=== PATIENT | female | born 1990 | race Caucasian/White ===

== ENCOUNTER 2016-05-10 09:30 | Emergency (ER) | payer MEDICAID ==
[2016-05-10 09:42] VITALS: TEMP 97.8; BMI 19.9
[2016-05-10 10:19] LABS: LEUKOCYTES/URINE TRACE (NEGATIVE); NITRITE/URINE NEG (NEGATIVE); URINE OCCULT BLOOD NEG (NEG/TRACE)
[2016-05-10] MEDS ORDERED: AZITHROMYCIN 250 MG TAB PO ONE (10:51)
[2016-05-10] MEDS ORDERED: CEFOXITIN 1 GM VIAL IM ONE (10:55)
[2016-05-10] MEDS ORDERED: GENTAMICIN 80 MG/2 ML VIAL IM ONE (11:35)
--- NOTE | 2016-05-10 11:37 | EDPRACDOC ---
- General Information Chief Complaint: Female Urogenital Problems Stated Complaint: ABDOMINAL PAIN Time Seen by Provider: 05/10/16 10:44 Information Source: Patient Home Medications: Home Medications No Home Medications 05/10/16 Allergies/Adverse Reactions: Allergies Allergy/AdvReac Type Severity Reaction Status Date / Time ceftriaxone sodium Allergy Hives* Verified 05/16/15 08:33 [facility] - History of Present Illness HPI: C/o lower abdo and pelvic pain with inc urinary urge, N/V and white vaginal d/c x 10 days. Denies vaginal bleeding, itching, fever, sob, cp. Med hx = asthma. Surgical hx = none. Onset: 10 DAYS Urinary Pain Location: Reports: Abdomen, Suprapubic Symptom Onset: Reports: Gradual Pain Severity: 4 Pain Quality: Reports: Cramping History of: Reports: None : (UNKNOWN) Oral Intake: Normal Urinary Output: Decreased Associated Signs and Symptoms: Reports: Abdominal Pain, Vaginal Discharge ED Past Medical History - History Reviewed Yes Nurses notes reviewed and agree except as marked - Patient Medical History Neurological History: Reports: Migraine Respiratory History: Reports: Asthma GI/ History: Denies: Urinary Tract Infection Psychological History: Reports: Depression Systemic History: Denies: Cancer - Family Medical History Reports: Cancer (AUNT/FATHER) - Social Medical History Smoking Status: Heavy tobacco smoker (5 or more cigarettes/day or daily pipe/ cigar) EDM Review of Systems - Review of Systems ROS Negative Except as Marked: Yes All systems reviewed and were negative except as marked Gastrointestinal: Nausea, Pain, Vomiting Genitourinary: Dysuria, Vaginal Discharge - Physical Exam Constitutional: No apparent distress, Alert Oriented to: Time, Person, Place Last recorded Vital Signs: Last Vital Signs Temp 97.8 F 05/10/16 09:39 Pulse 75 05/10/16 09:39 Resp 16 05/10/16 09:39 BP 109/63 05/10/16 09:39 Pulse Ox 99 05/10/16 09:39 Oxygen Pulse Oxygen Saturation 99 O2 Device Room Air Oxygen Flow Rate Fraction of Inspired Oxygen ( FIO2) - HEENT Head: Normal Eye Exam: negative: Conjunctival Injection, Scleral Icterus TMJ: Normal Nose: No Symptoms Reported Neck: Normal - Respiratory/Cardiovascular Respiratory: Normal - CTA Cardiovascular: Normal - GI Tenderness: Mild, Suprapubic - Bladder: Normal External: Normal Vagina: Discharge Cervix: Discharge, Tenderness Uterus: Normal size Adnexa: Bilateral: Tender - Musculoskeletal Back: Normal Extremities: Normal - Integumentary Skin: Normal - Neurologic Mood Description: Normal Thought: Coherent Perception: Normal - Results Urine Color Yellow 05/10/16 10:00 Urine Clarity Hazy 05/10/16 10:00 Urine pH 5.0 (5.0-8.0) 05/10/16 10:00 Ur Specific [place] 1.025 (1.003-1.035) 05/10/16 10:00 Urine Protein Neg (NEG/TRACE) 05/10/16 10:00 Urine Glucose (UA) Neg (NEGATIVE) 05/10/16 10:00 Urine Ketones Neg (NEGATIVE) 05/10/16 10:00 Urine Occult Blood Neg (NEG/TRACE) 05/10/16 10:00 Urine Nitrite Neg (NEGATIVE) 05/10/16 10:00 Urine Bilirubin Neg (NEGATIVE) 05/10/16 10:00 Urine Urobilinogen <2.0 MG/DL (0-1) 05/10/16 10:00 Ur Leukocyte Esterase Trace (NEGATIVE) H 05/10/16 10:00 Urine RBC 2-5 (0-5) 05/10/16 10:00 Urine WBC 10-20 (0-5) H 05/10/16 10:00 Ur Epithelial Cells 2+ 05/10/16 10:00 Urine Bacteria 3+ (NEG/FEW) H 05/10/16 10:00 Urine Mucus Mod (NEG/OCC) H 05/10/16 10:00 Urine Test Neg (NEGATIVE) 05/10/16 10:00 Microbiology 05/10/16 10:35 TERELL Preparation - Final Vaginal 05/10/16 10:35 Trichomonas [place] - Final Vaginal Lab Results 05/10/16 05/10/16 10:00 10:00 Urine Color Yellow Urine Clarity Hazy Urine pH 5.0 Ur Specific [place] 1.025 Urine Protein Neg Urine Glucose (UA) Neg Urine Ketones Neg Urine Occult Blood Neg Urine Nitrite Neg Urine Bilirubin Neg Urine Urobilinogen <2.0 Ur Leukocyte Esterase Trace H Urine RBC 2-5 Urine WBC 10-20 H Ur Epithelial Cells 2+ Urine Bacteria 3+ H Urine Mucus Mod H Urine Test Neg Decision Time to Discharge: 11:36 - Departure Disposition: Home Final Diagnosis: PID (acute pelvic inflammatory disease) Instructions: Pelvic Inflammatory Disease (ED) Education/Counseling Given To: Patient Education/Counseling Given Regarding: Diagnosis, Treatment, Prognosis, Follow Up Referrals: Dev Bustos MD [Primary Care Provider] - One Week Prescriptions: No Action No Home Medications 0 NA DIR #0 info Additional Instructions: Follow up with primary care. Return to ED for any new or worsening symptoms.
[2016-05-10 12:36] VITALS: BP 113/62; PULSE 74
[2016-05-11 21:40] LABS: CHLAMY BY NUCLEIC ACID AMP Negative (Negative)
[2016-05-12 07:57] LABS: GC BY NUCLEIC ACID AMP Negative (Negative)
== END 2016-05-10 12:10 | disposition home or self-care (01) ==
LOC: ED 09:30
DX: N73.9 Female pelvic inflammatory disease, unspecified (principal)
CPT/HCPCS: 81001; 81025; 87210; 87220; 87491; 87591; 96372; 99283; J1580; J3490